=== PATIENT | female | born 1960 | race Caucasian/White ===

== ENCOUNTER → 2017-01-14 | Outpatient (CLI) | payer OTHER | LOC: CARD 11:47 | PROVIDERS: ATTEND Internal Medicine Cardiovascular Disease | DX: I25.10 Atherosclerotic heart disease of native coronary artery without angina pectoris (principal); I10 Essential (primary) hypertension; K21.9 Gastro-esophageal reflux disease without esophagitis; J45.909 Unspecified asthma, uncomplicated; Z82.49 Family history of ischemic heart disease and other diseases of the circulatory system | CPT/HCPCS: 93306 ==

== ENCOUNTER → 2017-01-20 | Outpatient (CLI) | payer OTHER ==
[~2017-01-20] MED LIST: CATHETER FLUSH 10 ML SYR IV PRN
[2017-01-20 13:52] VITALS: BP 150/87
--- NOTE | 2017-01-21 01:18 | STRESS TEST ---
DATE OF SERVICE: 01/20/2017 EXERCISE MYOVIEW STRESS TEST REFERRING PHYSICIAN: Dr. Sunil Spence. SUMMARY: The patient was injected with 10.99 mCi of technetium-99 Myoview and the resting images were obtained. Then, the patient started exercising with the baseline heart rate, blood pressure and EKG mentioned above. She was able to exercise for a total of 7 minutes 29 seconds on standard Beto protocol, achieving maximum heart rate of 149, which is 89% of maximum expected heart rate. With peak exercise level, blood pressure was 179/82. EKG was showing minimal undiagnostic changes. Prior to the peak exercise level, the patient was injected with 29.5 mCi of technetium-99 Myoview. During recovery, heart rate and blood pressure returned to baseline. EKG returned to baseline. The resting and stress images were reviewed and compared in the short axis, horizontal long axis, and vertical long axis views. Review of the images showed breast attenuation with typical female pattern. No significant ischemia or infarction. SSS is 4, SDS 3, TID value 1.01. On the gated images, the left ventricle appeared to be normal size with normal contractility, calculated ejection fraction 54%. CONCLUSION: 1. Fair exercise tolerance, a total of 7 minutes 26 seconds on standard Beto protocol, total of 8.9 METS achieving 89% of maximum expected heart rate. 2. Appropriate heart rate and blood pressure response to exercise, returned to baseline during recovery. 3. Nondiagnostic EKG changes with exercise, returned to baseline during recovery. 4. Breast attenuation with typical female pattern with no significant ischemia or infarction on SPECT images. 5. Normal left ventricular size with normal contractility. Calculated ejection fraction 54%. Job ID: [id number] DocumentID: [id number] Dictated Date: 01/20/2017 17:46:36 Grain Broker And Market Operator Date: 01/20/2017 22:42:28 Dictated By: DESIRE MAYORGA MD
== END ==
LOC: CARD 12:08
PROVIDERS: ATTEND Internal Medicine Cardiovascular Disease
DX: I25.10 Atherosclerotic heart disease of native coronary artery without angina pectoris (principal); I10 Essential (primary) hypertension; J45.909 Unspecified asthma, uncomplicated; K21.9 Gastro-esophageal reflux disease without esophagitis; Z82.49 Family history of ischemic heart disease and other diseases of the circulatory system
CPT/HCPCS: 78452; 93017

== ENCOUNTER 2019-11-02 09:06 | Outpatient (RCR) | payer OTHER ==
[~2019-11-02] VITALS: Ht 170 cm; Wt 86.0 kg
[~2019-11-02 09:06] MED LIST changes: -CATHETER FLUSH 10 ML SYR IV PRN; +LEVO5TAB28 PO; +PSEU120T75 PO
== END 2019-11-02 15:37 | disposition home or self-care (01) ==
LOC: PREOP 09:06
PROVIDERS: ATTEND Surgery
DX: Z01.818 Encounter for other preprocedural examination (principal); Z11.59 Encounter for screening for other viral diseases
CPT/HCPCS: 87635

== ENCOUNTER 2019-11-06 08:51 | Day surgery (SDC) | payer BC ==
[~2019-11-06] VITALS: Ht 170 cm; Wt 86.0 kg
[~2019-11-06 08:51] MED LIST changes: +LACTATED RINGERS 1,000 ML IV ONE
[2019-11-06] MEDS ORDERED: LACTATED RINGERS 1,000 ML IV STA (08:54)
[2019-11-06 09:00] VITALS: BP 137/90
--- OUTSIDE RECORDS SUMMARY | 2019-11-06 09:16 | XMS REPORT | Continuity of Care Document ---
Demographics Preferred Language Unknown Marital Status Unknown Nondenominational Affiliation Unknown Race Unknown Ethnic Group Unknown Author Organization Unknown Address Unknown Phone Unavailable Allergies Active Description Code Type Severity Reaction Onset Reported/Identified Relationship to Patient Clinical Status Yes sulfa drug Drug Allergy 08/07/2009 Yes No Allergy Information Available [id number] Drug Allergy Unknown N/A 016 Yes Sulfa (Sulfonamide Antibiotics) [id number] Drug Allergy Unknown FROM CHILDHOOD 11/01/2019 Medications There is no data. Problems Date Dx Coded Attending Type Code Diagnosis Diagnosed By 05/06/1536 KOBE POLANCO DO, Ot Z01.8 18 ENCOUNTER FOR OTHER PREPROCEDURAL EXAMIN 05/06/1536 KOBE POLANCO DO Ot Z11.5 9 ENCOUNTER FOR SCREENING FOR OTHER VIRAL 05/05/2010 381.81 DYS FUNCTION OF [place]ST[place] TUBE 12/02/2015 ARCHIE GRIMES Ot M54.2 CERVICALGIA 12/26/2015 ARCHIE GRIMES Ot M54.2 CERVICALGIA 01/13/2016 ARCHIE GRIMES Ot M54.2 CERVICALGIA 01/11/2017 ARCHIE GRIMES Ot M54.2 CERVICALGIA 01/14/2017 ARCHIE GRIMES Ot M54.2 CERVICALGIA 02/15/2017 DESIRE MAYORGA MD Ot I10 ESSENTIAL (PRIMARY) HYPERTENSION 02/15/2017 DESIRE MAYORGA MD Ot I25. 10 ATHSCL HEART DISEASE OF [place] CORONARY 02/15/2017 DESIRE MAYORGA MD, Ot J45.909 UNSPECIFIED ASTHMA, UNCOMPLICATED 02/15/2017 DESIRE MAYORGA MD Ot K21. 9 GASTRO-ESOPHAGEAL REFLUX DISEASE WITHOUT 02/15/2017 DESIRE MAYORGA MD, Ot Z82. 49 FAMILY HX OF [place] HEART DIS AND OTH DI 02/15/2017 DESIRE MAYORGA MD Ot I10 ESSENTIAL (PRIMARY) HYPERTENSION 02/15/2017 DESIRE MAYORGA MD Ot I25. 10 ATHSCL HEART DISEASE OF [place] CORONARY 02/15/2017 DESIRE MAYORGA MD, Ot J45.909 UNSPECIFIED ASTHMA, UNCOMPLICATED 02/15/2017 DESIRE MAYORGA MD J Ot K21. 9 GASTRO-ESOPHAGEAL REFLUX DISEASE WITHOUT 02/15/2017 DESIRE MAYORGA MD J Ot Z82. 49 FAMILY HX OF [place] HEART DIS AND OTH DI 03/02/2017 DESIRE MAYORGA MD J Ot I10 ESSENTIAL (PRIMARY) HYPERTENSION 03/02/2017 DESIRE MAYORGA MD J Ot I25. 10 ATHSCL HEART DISEASE OF [place] CORONARY 03/02/2017 DESIRE MAYORGA MD J Ot J45.909 UNSPECIFIED ASTHMA, UNCOMPLICATED 03/02/2017 DESIRE MAYORGA MD J Ot K21. 9 GASTRO-ESOPHAGEAL REFLUX DISEASE WITHOUT 03/02/2017 DESIRE MAYORGA MD Ot Z82. 49 FAMILY HX OF [place] HEART DIS AND OTH DI 03/02/2017 DESIRE MAYORGA MD J Ot I10 ESSENTIAL (PRIMARY) HYPERTENSION 03/02/2017 DESIRE MAYORGA MD J Ot I25. 10 ATHSCL HEART DISEASE OF [place] CORONARY 03/02/2017 DESIRE MAYORGA MD J Ot J45.909 UNSPECIFIED ASTHMA, UNCOMPLICATED 03/02/2017 DESIRE MAYORGA MD J Ot K21. 9 GASTRO-ESOPHAGEAL REFLUX DISEASE WITHOUT 03/02/2017 DESIRE MAYORGA MD J Ot Z82. 49 FAMILY HX OF [place] HEART DIS AND OTH DI 03/23/2017 DESIRE MAYORGA MD J Ot I10 ESSENTIAL (PRIMARY) HYPERTENSION 03/23/2017 DESIRE MAYORGA MD J Ot I25. 10 ATHSCL HEART DISEASE OF [place] CORONARY 03/23/2017 DESIRE MAYORGA MD Ot J45.909 UNSPECIFIED ASTHMA, UNCOMPLICATED 03/23/2017 DESIRE MAYORGA MD J Ot K21. 9 GASTRO-ESOPHAGEAL REFLUX DISEASE WITHOUT 03/23/2017 DESIRE MAYORGA MD J Ot Z82. 49 FAMILY HX OF [place] HEART DIS AND OTH DI 08/17/2019 W I10 Essent ial (primary) hypertension Jaylyn Field 08/17/2019 W R05 Cough due to RAUL inhibitor Jaylyn Field 08/17/2019 W T46.4X5A A dverse effect of vwqmeyjftzi-xvvhhilzap-mmecyv inhibitors, initial encounter Jaylyn Field 08/17/2019 W Z00.01 Enc ounter for general adult medical examination with abnormal findings Jaylyn Field 10/31/2019 GARY JENSEN, ARCHIE Leblanc Ot M54.2 CERVICALGIA 10/31/2019 DESIRE MAYORGA MD Ot I10 ESSENTIAL (PRIMARY) HYPERTENSION 10/31/2019 DESIRE MAYORGA MD Ot I25. 10 ATHSCL HEART DISEASE OF [place] CORONARY 10/31/2019 DESIRE MAYORGA MD, Ot J45.909 UNSPECIFIED ASTHMA, UNCOMPLICATED 10/31/2019 DESIRE MAYORGA MD Ot K21. 9 GASTRO-ESOPHAGEAL REFLUX DISEASE WITHOUT 10/31/2019 DESIRE MAYORGA MD Ot Z82. 49 FAMILY HX OF [place] HEART DIS AND OTH DI 10/31/2019 DESIRE MAYORGA MD, Ot I10 ESSENTIAL (PRIMARY) HYPERTENSION 10/31/2019 DESIRE MAYORGA MD Ot I25. 10 ATHSCL HEART DISEASE OF [place] CORONARY 10/31/2019 DESIRE MAYORGA MD, Ot J45.909 UNSPECIFIED ASTHMA, UNCOMPLICATED 10/31/2019 DESIRE MAYORGA MD, Ot K21. 9 GASTRO-ESOPHAGEAL REFLUX DISEASE WITHOUT 10/31/2019 DESIRE MAYORGA MD Ot Z82. 49 FAMILY HX OF [place] HEART DIS AND OTH DI Procedures There is no data. Results Test Result Range Coronavirus SARS-CoV-2 SO 2018 - 0 13:09 Coronavirus Ab [Units/volume] in Serum Negative Negative Encounters ACCT No. Visit Date/Time Discharge Status Pt. Type Provider Facility Loc./Unit Complaint [id number] 05/05/2010 15:25:00 05/05/2010 23:59: 59 CLS Outpatient [id number] 07/15/2012 08:17:49 RECURRING [id number] 11/02/2019 09:06:00 020 15:37:00 DIS Outpatient KOBE POLANCO DO [facility] PREOP COLONOSCOPY [id number] 01/20/2017 12:08:00 017 23:59:59 CLS Outpatient DESIRE MAYORGA MD [facility] CARD CAD I25.10,HTN I10 [id number] 01/14/2017 11:47:00 017 23:59:59 CLS Outpatient DESIRE MAYORGA MD [facility] CARD CAD I25.10,HTN I10 [id number] 11/29/2015 09:42:00 016 23:59:59 CLS Outpatient ARCHIE GRIMES [facility] RAD NECK PAIN [id number] 11/06/2019 10:10:00 P EN Preadmit KOBE POLANCO DO [facility] ENDO +COLOGUARD [id number] 07/31/2019 13:35:16 07/31/2019 23:59:5 9 CLS Outpatient
--- NOTE | 2019-11-06 09:17 | Progress Note-Pre Operative ---
Pre-Operative Progress Note H&P Reviewed The H&P was reviewed, patient examined and no changes noted. Time Seen by Provider: 09:15 Date H&P Reviewed: Nov 06, 2019 Time H&P Reviewed: 09:15 Pre-Operative Diagnosis: + CologKOBE Richardson DO Nov 06, 2019 09:17
[2019-11-06] MEDS ORDERED: LOSA25TA2 PO (09:22)
[2019-11-06] MEDS ORDERED: MIDAZOLAM 2 MG/2 ML (VERSED) VIAL ONE (09:41)
[2019-11-06] MEDS ORDERED: PROPOFOL INJECTION 0 ML IV ONE (09:41)
[2019-11-06] MEDS ORDERED: KETAMINE/NaCl 50 MG/5 ML SYRINGE (ED ONLY) ONE (09:52)
[2019-11-06] MEDS ORDERED: PROPOFOL INJECTION 50 ML IV ONE (10:06)
[2019-11-06 10:15] VITALS: BP 97/57
--- NOTE | 2019-11-06 10:18 | Progress Note-Post Operative ---
Post-Operative Progess Note Surgeon (s)/Mechanical Field Engineer (s) Surgeon KOBE POLANCO DO Mechanical Field Engineer: none Pre-Operative Diagnosis + Cologuard Post-Operative Diagnosis Diverticula Int Hemorrhoids Procedure & Operative Findings Date of Procedure 11/06/19 Procedure Performed/Findings Colonoscopy Anesthesia Type IV sedation by PROCUREMENT FORESTER Estimated Blood Loss Estimated blood loss (mL): none Specimens/Packing Specimens Removed none KOBE POLANCO DO Nov 06, 2019 10:18
--- NOTE | 2019-11-06 10:19 | Endoscopy Discharge Instruct ---
Endo Procedure/Findings Findings 1.: Diverticulosis 2.: Internal Hemorrhoids Discharge Instructions - Activity: You might feel a little sleepy until tomorrow. This is due to the medicine you received to relax you. Until tomorrow, you should: NOT drive a car, operate machinery or power tools. NOT drink any alcoholic beverages. NOT make any important decisions or sign importortant papers. Do not return to work until tomorrow, unless otherwise instructed. Resume previous activities tomorrow. Diet: Start by taking liquids. If you tolerate liquids, advance to solid food. make an appointment for one week. 1.: Colonscopy in 10 years Notify Physician - If you experience excessive bleeding, unusual abdominal pain, fever, or chest pain, contact your doctor immediately. KOBE POLANCO DO Nov 06, 2019 10:19
[2019-11-06 10:20] VITALS: BP 105/59
[2019-11-06 10:25] VITALS: BP 117/68
[2019-11-06 10:55] VITALS: BP 134/87
[2019-11-06 11:07] VITALS: BP 134/87
--- NOTE | 2019-11-06 12:20 | Anesthesia-General Post-Op ---
MAC Patient Condition Mental Status/LOC: Same as Preop Cardiovascular: Satisfactory Nausea/Vomiting: Absent Respiratory: Satisfactory Pain: Controlled Complications: Absent Post Op Complications Complications None Follow Up Care/Instructions Patient Instructions None needed. Anesthesiology Discharge Order Discharge Order Patient is doing well, no complaints, stable vital signs, no apparent adverse anesthesia problems. No complications reported per nursing. NIDHI MAKI CRNA Nov 06, 2019 12:20
--- NOTE | 2019-11-06 23:25 | OPERATIVE REPORT ---
DATE OF SERVICE: 11/06/2019 PREOPERATIVE DIAGNOSIS: Positive Cologuard. POSTOPERATIVE DIAGNOSES: Diverticula, and internal hemorrhoids. PROCEDURE: Colonoscopy. SURGEON: Lc Siddiqui DO OPENER: None. ANESTHESIA: IV sedation by the GYROSCOPE REPAIRER. SPECIMENS: None. BLOOD LOSS: None. FLUIDS: Per anesthesia. POSTOPERATIVE CONDITION: Stable. INDICATION FOR PROCEDURE: The patient is a 59-year-old female who had a positive Cologuard test and needed a colonoscopy. FINDINGS: The patient had some multiple diverticula, some internal hemorrhoids, but no other obvious pathology. PROCEDURE NOTE: After informed consent was obtained, the patient was brought to the endoscopy suite, placed in bed in the left lateral decubitus position. She was administered IV sedation by the GYROSCOPE REPAIRER who then monitored her vitals the entire time, heart rate, blood pressure and pulse ox and the scope was inserted, pushed all the way about 150 cm, able to get to the cecum. On the way in, noted multiple diverticula, took a picture of this, took a picture of the appendiceal orifice, noted the ileocecal valve and then slowly withdrew the scope insufflating to look circumferentially at the aleman looking at the cecum, up the ascending colon to the hepatic flexure, then down the transverse colon to the splenic flexure, then down into the descending colon into the sigmoid and finally into the rectum, retroflexed in the rectal vault, saw some minimal internal hemorrhoids, took a picture of this and then removed the scope. The patient tolerated the procedure, recovered in endoscopy suite. Job ID: [id number] DocumentID: [id number] Dictated Date: 11/06/2019 16:07:35 Manufacturing Machine Operator Date: 11/06/2019 23:25:07 Dictated By: LC SIDDIQUI DO
== END 2019-11-06 11:07 | disposition home or self-care (01) ==
LOC: ENDO 08:51
PROVIDERS: ATTEND Surgery
DX: K57.30 Diverticulosis of large intestine without perforation or abscess without bleeding (principal); K64.8 Other hemorrhoids; R19.5 Other fecal abnormalities; I25.10 Atherosclerotic heart disease of native coronary artery without angina pectoris; I11.9 Hypertensive heart disease without heart failure; J45.909 Unspecified asthma, uncomplicated; I63.9 Cerebral infarction, unspecified; K21.9 Gastro-esophageal reflux disease without esophagitis; Z79.891 Long term (current) use of opiate analgesic; Z79.899 Other long term (current) drug therapy; Z90.89 Acquired absence of other organs; Z88.2 Allergy status to sulfonamides

== ENCOUNTER → 2020-03-13 | Outpatient (CLI) | payer BC ==
[~2020-03-13] MED LIST changes: -LACTATED RINGERS 1,000 ML IV ONE; +LOSA25TA2 PO
--- NOTE | 2020-03-14 11:47 | Diagnostic Imaging Report ---
Indication: Routine screening. No prior studies are available for comparison. 2-D and 3-D bilateral screening mammography was performed with CAD. Scattered fibroglandular densities are identified bilaterally. There is a nodular density in the retroareolar right breast on the CC view. This appears to be inferiorly located on the MLO view. Additional views are recommended. A left breast is unremarkable. No malignant appearing microcalcifications are seen. Axillae are unremarkable. IMPRESSION: BI-RADS 0 Right breast density. Additional views recommended for further evaluation. ACR BI-RADS Category 0: Incomplete. (Needs additional imaging evaluation). Result letter will be mailed to the patient. Note: At least 10% of breast cancer is not imaged by mammography. Dictated by: Dictated on workstation # [id number]
== END ==
LOC: RAD 14:45
PROVIDERS: ATTEND Family Medicine
DX: Z12.31 Encounter for screening mammogram for malignant neoplasm of breast (principal)
CPT/HCPCS: 77063; 77067

== ENCOUNTER → 2020-03-25 | Outpatient (CLI) | payer BC ==
--- NOTE | 2020-03-25 15:55 | Diagnostic Imaging Report ---
Unilateral diagnostic right mammogram INDICATION: Abnormal mammogram FINDINGS: The screening mammogram performed on 03/13/2020 noted a nodular density in the retroareolar region of the right breast. The compression views of this area show no clear evidence for a discrete mass. Even so, I would recommend that ultrasound be performed for further study. IMPRESSION: There is no evidence of malignancy. Recommendations as above. ACR category 0. ACR BI-RADS Category 0: Incomplete. (Needs additional imaging evaluation). Result letter will be mailed to the patient. Note: At least 10% of breast cancer is not imaged by mammography. Dictated by: Dictated on workstation # [id number]
--- NOTE | 2020-03-25 20:08 | Diagnostic Imaging Report ---
EXAM: Limited ultrasound of the right breast INDICATION: Abnormal mammogram FINDINGS: The screening mammogram performed on 03/13/2020 suggests a nodular density in the retroareolar region of the right breast. On the diagnostic mammogram performed prior to the study, there is no clear evidence for malignancy. On this exam, there is a small 4 x 4 mm avascular hypoechoic area in the 6 clock position of the breast roughly 6 cm from the nipple. During my real-time examination of this area, this seemed to represent a benign process such as a cyst or perhaps a duct. There were a few internal echoes however. The presence of the echoes suggests that the cyst/duct may be slightly concave by infection and/or hemorrhage. There is no solid or cystic mass identified otherwise. IMPRESSION: There is a small slightly complex hypoechoic lesion in the 6 o'clock position of the breast. This is most likely a benign process such as a slightly complicated cyst or a duct with some debris. Even so, I would recommend a short-term (6 month) follow-up mammogram and ultrasound exam be performed for further study. ACR BI-RADS Category 3: Probably benign findings. Result letter will be mailed to the patient. Note: At least 10% of breast cancer is not imaged by mammography. Dictated by: Dictated on workstation # [id number]
== END ==
LOC: RAD 13:15
PROVIDERS: ATTEND Nurse Practitioner Family
DX: N64.9 Disorder of breast, unspecified (principal)
CPT/HCPCS: 76642; 77065; G0279

== ENCOUNTER → 2020-09-23 | Outpatient (CLI) | payer BC ==
--- NOTE | 2020-09-23 13:46 | Diagnostic Imaging Report ---
INDICATION: Six-month followup right breast nodule. COMPARISON: Correlation is made with the prior mammogram of 03/13/2020. TECHNIQUE: Unilateral right 2D and 3D diagnostic mammography was performed with CAD. FINDINGS: Scattered fibroglandular densities are identified bilaterally. The retroareolar nodular density appears stable when compared to the prior exam. No new mass is seen. No malignant appearing microcalcifications are identified. The right axilla is unremarkable. IMPRESSION: Stable right mammogram. Ultrasound followup of the previously noted nodule at the 6 o'clock location is recommended and will be performed today. ACR BI-RADS Category 0: Incomplete. (Needs additional imaging evaluation). Result letter will be mailed to the patient. Note: At least 10% of breast cancer is not imaged by mammography. Dictated by: Dictated on workstation # [id number]
--- NOTE | 2020-09-23 18:39 | Diagnostic Imaging Report ---
INDICATION: Six-month follow-up right breast nodule. CORRELATION is made with prior ultrasound 03/25/2020. Hypoechoic nodule 6:00 location of the right breast, 2 cm from the nipple, measuring 4 mm x 4 mm x 6 mm, stable when compared with prior exam. No new abnormality is detected. IMPRESSION: BI-RADS Category 3 Stable hypoechoic nodule 6:00 location right breast, 2 cm from the nipple. Additional six-month follow-up is recommended to show continued stability. ACR BI-RADS Category 3: Probably benign findings. Result letter will be mailed to the patient. Note: At least 10% of breast cancer is not imaged by mammography. Dictated by: Dictated on workstation # [id number]
== END ==
LOC: RAD 12:21
PROVIDERS: ATTEND Family Medicine
DX: N63.15 Unspecified lump in the right breast, overlapping quadrants (principal)
CPT/HCPCS: 76642; 77065; G0279

== ENCOUNTER → 2020-10-11 | Outpatient (CLI) | payer BC ==
[2020-10-11 13:19] LABS: ALBUMIN 4.2 GM/DL (3.2-4.5); CHLORIDE 105 MMOL/L (98-107); POTASSIUM 4.2 MMOL/L (3.6-5.0); SODIUM 140 MMOL/L (135-145)
[2020-10-11 13:20] LABS: CALCIUM 9.2 MG/DL (8.5-10.1)
[2020-10-11 13:21] LABS: TRIGLYCERIDES 144 MG/DL (<150); VLDL CHOLESTEROL 29 MG/DL (5-40)
[2020-10-11 13:22] LABS: GLUCOSE 92 MG/DL (70-105); TOTAL PROTEIN 7.2 GM/DL (6.4-8.2)
[2020-10-11 13:23] LABS: BILIRUBIN,TOTAL 0.3 MG/DL (0.1-1.0); CARBON DIOXIDE 27 MMOL/L (21-32)
[2020-10-11 13:25] LABS: ALKALINE PHOSPHATASE 80 U/L (40-136); CREATININE SERUM 0.82 MG/DL (0.60-1.30); GFR ESTIMATED > 60
[2020-10-11 13:26] LABS: CHOLESTEROL 239 MG/DL (< 200)
[2020-10-11 13:27] LABS: BUN/CREATININE RATIO 20; HDL CHOLESTEROL 53 MG/DL (40-60)
[2020-10-11 13:28] LABS: ALANINE AMINOTRANSFERASE 26 U/L (0-55)
== END ==
LOC: CARD 12:50
PROVIDERS: ATTEND Internal Medicine Cardiovascular Disease
DX: I10 Essential (primary) hypertension (principal); I34.0 Nonrheumatic mitral (valve) insufficiency; E78.2 Mixed hyperlipidemia
CPT/HCPCS: 36415; 80053; 80061; 93306

== ENCOUNTER → 2021-06-27 | Outpatient (CLI) | payer BC ==
--- NOTE | 2021-06-27 13:54 | Diagnostic Imaging Report ---
INDICATION: Six-month follow-up right breast nodule. Correlation is made with prior mammogram from 03/13/2020 and 09/23/2020. 2-D and 3-D bilateral diagnostic mammography was performed with CAD. Scattered fibroglandular densities are identified bilaterally. The nodular density in the retroareolar aspect of the right breast on the CC view appears stable. No new mass is detected. No malignant-appearing microcalcifications are seen. Axillae are unremarkable. IMPRESSION: BI-RADS 0 Stable bilateral mammograms. Patient is scheduled to undergo ultrasound of a known right breast 6:00 location nodule today for follow-up. ACR BI-RADS Category 0: Incomplete. (Needs additional imaging evaluation). Result letter will be mailed to the patient. Note: At least 10% of breast cancer is not imaged by mammography. Dictated by: Dictated on workstation # [id number]
--- NOTE | 2021-06-27 14:46 | Diagnostic Imaging Report ---
INDICATION: Six-month follow-up right breast nodule. COMPARISON: Correlation is made with prior ultrasound from 09/23/2020 as well as prior mammograms dating back to 2019. EXAMINATION: Right breast ultrasound. FINDINGS: Previously noted circumscribed hypoechoic nodule at the 6:00 location of the right breast, 2 cm from the nipple, is again noted and stable measuring 4 mm x 4 mm x 6 mm. No internal vascularity is seen. No other masses are identified. IMPRESSION: Stable nodule 6:00 location right breast, 2 cm from the nipple. This now shows approximately 15 months of stability. Additional six-month follow-up is recommended to show continued stability. ACR BI-RADS Category 3: Probably benign findings. Result letter will be mailed to the patient. Note: At least 10% of breast cancer is not imaged by mammography. Dictated by: Dictated on workstation # [id number]
== END ==
LOC: RAD 13:15
PROVIDERS: ATTEND Family Medicine
DX: N63.10 Unspecified lump in the right breast, unspecified quadrant (principal)
CPT/HCPCS: 76642; 77066; G0279; 77062

== ENCOUNTER → 2022-02-05 | Outpatient (CLI) | payer BC ==
--- NOTE | 2022-02-05 21:45 | Diagnostic Imaging Report ---
INDICATION: Follow-up nodule. EXAMINATION: Limited ultrasound of right breast. FINDINGS: The previous right breast ultrasound exam performed on 06/27/2021 noted a 4 x 4 x 6 mm hypoechoic nodule in the 6 clock position approximately 2 cm from the nipple. That nodule did seem stable when compared to the previous exams of 09/23/2020 and 03/24/2020. On this exam, the nodule is again identified. The nodule now measures 4 x 6 x 7 mm. In addition to being slightly larger than on the prior exam, the nodule now has a taller than wide configuration. This finding is of uncertain etiology but worrisome for malignancy. I would recommend that ultrasound-guided biopsy be performed to exclude malignancy. IMPRESSION: 1. The nodule in the 6 o'clock position of the right breast seen previously is slightly larger and has changed in configuration. An ultrasound-guided biopsy would be recommended to exclude malignancy. 2. These results were discussed with Dr. Jaylyn Field. ACR BI-RADS Category 4: Suspicious abnormality. Result letter will be mailed to the patient. Note: At least 10% of breast cancer is not imaged by mammography. Dictated by: Dictated on workstation # [id number]
== END ==
LOC: RAD 13:41
PROVIDERS: ATTEND Family Medicine
DX: N63.10 Unspecified lump in the right breast, unspecified quadrant (principal)

== ENCOUNTER → 2022-02-16 | Outpatient (CLI) | payer BC ==
[~2022-02-16] VITALS: Ht 170.2 cm; Wt 85.9 kg
[~2022-02-16] MED LIST changes: +LIDOCAINE 1% INJ 10 ML VIAL IJ ONE
--- NOTE | 2022-02-16 12:17 | Diagnostic Imaging Report ---
INDICATION: Right breast nodule. Patient presents for ultrasound-guided biopsy. DETAILS OF THE PROCEDURE: The patient was brought to the mammographic suite and placed on the table in the supine position. Ultrasound imaging of the right breast was performed to evaluate for an appropriate entry site. The right breast was then prepped and draped in the usual sterile fashion. A small amount of 1% lidocaine was utilized for local anesthesia. A 13-gauge hand-held vacuum-assisted mammotome device was positioned adjacent to the ill-defined hypoechogenicity at the 6 o'clock location of the right breast. Multiple core biopsies were obtained with the vacuum-assisted device. A marker clip was then deployed. Hemostasis was obtained using manual compression. The patient tolerated the procedure well and was sent for a post procedure mammogram in satisfactory condition. IMPRESSION: Successful biopsy of the small hypoechoic lesion at the 6 o'clock location of the right breast utilizing a 13-gauge, hand-held vacuum-assisted mammotome device. Pathology results are currently pending. Dictated by: Dictated on workstation # [id number]
--- NOTE | 2022-02-16 14:24 | Diagnostic Imaging Report ---
INDICATION: Right breast nodule, status post ultrasound-guided biopsy. FINDINGS: Unilateral right CC and ML mammography was performed after the patient underwent an ultrasound-guided right breast biopsy. Images demonstrate a marker clip in the inferior and slightly lateral retroareolar right breast status post biopsy. IMPRESSION: Marker clip placement status post ultrasound-guided right breast biopsy. Dictated by: Dictated on workstation # [id number]
== END ==
LOC: RAD 09:43
PROVIDERS: ATTEND Nurse Practitioner Family
DX: N63.10 Unspecified lump in the right breast, unspecified quadrant (principal)
CPT/HCPCS: 19083; 77065; G0279

== ENCOUNTER 2022-04-02 00:10 | Emergency (ER) | payer BC ==
[~2022-04-02 00:10] MED LIST changes: -LIDOCAINE 1% INJ 10 ML VIAL IJ ONE
[2022-04-02 01:14] LABS: BASOPHILS % (AUTO) 1 % (0-10); EOSINOPHILS # (AUTO) 0.5 10^3/uL (0.0-0.3); EOSINOPHILS % (AUTO) 8 % (0-10); HEMATOCRIT 39 % (35-52); HEMOGLOBIN 13.6 g/dL (11.5-16.0); LYMPHOCYTES # (AUTO) 1.6 10^3/uL (1.0-4.0); LYMPHOCYTES % (AUTO) 29 % (12-44); MEAN CORPUSCULAR HEMOGLOBIN 34 pg (25-34); MEAN CORPUSCULAR HGB CONC 35 g/dL (32-36); MEAN CORPUSCULAR VOLUME 99 fL (80-99); MEAN PLATELET VOLUME 9.7 fL (9.0-12.2); MONOCYTES # (AUTO) 0.5 10^3/uL (0.0-1.0); MONOCYTES % (AUTO) 9 % (0-12); NEUTROPHILS # (AUTO) 2.9 10^3/uL (1.8-7.8); NEUTROPHILS % (AUTO) 53 % (42-75); PLATELET COUNT 221 10^3/uL (130-400); WHITE BLOOD COUNT 5.6 10^3/uL (4.3-11.0)
[2022-04-02 01:25] LABS: BILIRUBIN,URINE NEGATIVE (NEGATIVE); CLARITY,URINE CLEAR; COLOR,URINE YELLOW; GLUCOSE, URINE (UA) NEGATIVE (NEGATIVE); KETONES,URINE NEGATIVE (NEGATIVE); LEUKOCYTE ESTERASE ,URINE NEGATIVE (NEGATIVE); NITRITE,URINE NEGATIVE (NEGATIVE); PH,URINE 6.5 (5-9); PROTEIN,URINE NEGATIVE (NEGATIVE)
[2022-04-02 01:36] LABS: BACTERIA,URINE TRACE /HPF
[2022-04-02 01:39] LABS: ALBUMIN 4.1 GM/DL (3.2-4.5)
[2022-04-02 01:41] LABS: CALCIUM 9.1 MG/DL (8.5-10.1)
[2022-04-02 01:42] LABS: TOTAL PROTEIN 6.9 GM/DL (6.4-8.2)
[2022-04-02 01:44] LABS: BILIRUBIN,TOTAL 0.4 MG/DL (0.1-1.0)
[2022-04-02 01:45] LABS: CREATININE SERUM 0.77 MG/DL (0.60-1.30)
[2022-04-02 01:48] LABS: MAGNESIUM 1.9 MG/DL (1.6-2.4)
[2022-04-02 02:10] LABS: FREE T4 (FREE THYROXINE) 0.81 NG/DL (0.70-1.48)
[2022-04-02] MEDS ORDERED: IOHEXOL 350 MG/ML 100 ML (OMNIPAQUE 350) VIAL IV ONE (03:00)
[2022-04-02] MEDS ORDERED: CATHETER FLUSH 10 ML SYR IV PRN (03:00)
[2022-04-02] MEDS ORDERED: NS 100 ML (IVPB) BAG IV ONE (03:00)
[2022-04-02 03:35] VITALS: BP 171/99
--- NOTE | 2022-04-02 03:43 | ED General ---
General Chief Complaint: General Problems/Pain Stated Complaint: DIZZY,HIGH BLOOD PRESSURE 180/109 Nursing Triage Note: PT ARRIVAL TO ER VIA PRIVATE VEHICLE FROM HOME WITH COMPLAINTS OF HTN, DIZZINESS X18 HOURS. PT STATES THAT SHE HAS HX OF CAD AND WANTED TO BE CHECKED OUT JUST IN CASE. Source of Information: Patient Exam Limitations: No Limitations History of Present Illness Date Seen by Provider: Apr 02, 2022 Time Seen by Provider: 00:29 Initial Comments This is 62-year-old woman presents to the emergency room with complaints of dizziness and high blood pressure since about 0900. She drove home from work and tried to relax but symptoms did not resolve. Blood pressure was quite high when she checked it at home. She was nauseated. She complained of a paresthesia in the left hand without any weakness. She had a mild headache this morning which has since improved. She also felt off balance but was able to walk independently and safely. She denies any chest pain or shortness of air. She took her usual losartan 50 mg at around 2130. She added an additional l osartan 25 mg at 2230. Allergies and Home Medications Allergies Coded Allergies: Sulfa (Sulfonamide Antibiotics) (Verified Allergy, Unknown, FROM CHILDHOOD, 11/01/19) Patient Home Medication List Home Medication List Reviewed: Yes Levocetirizine Dihydrochloride (Xyzal) 5 Mg Tablet, 2.5 MG PO HS, (Reported) Entered as Reported by: ANA DAVIS on 11/01/19 1134 Losartan Potassium (Cozaar) 25 Mg Tablet, 25 MG PO DAILY, (Reported) Entered as Reported by: VENKAT WREN on 11/06/19 0922 Pseudoephedrine HCl (Pseudoephedrine ER) 120 Mg Tablet.er, 60 MG PO DAILY, (Reported) Entered as Reported by: ANA DAVIS on 11/01/19 1134 Review of Systems Review of Systems Constitutional: no symptoms reported EENTM: no symptoms reported Respiratory: no symptoms reported Cardiovascular: see HPI Gastrointestinal: see HPI Genitourinary: no symptoms reported Musculoskeletal: no symptoms reported Skin: no symptoms reported Psychiatric/Neurological: See HPI Hematologic/Lymphatic: No Symptoms Reported Immunological/Allergic: no symptoms reported Past Ldrvdkj-Lqhrpn-Tughzs Hx Patient Social History Tobacco Use?: No Use of E-Cig and/or Vaping dev: No Substance use?: No Alcohol Use?: No Pt feels they are or have been: No Immunizations Up To Date PED Vaccines UTD: No Influenza Vaccine Up-to-Date: No; Not Current COVID19 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 Seasonal Allergies Seasonal Allergies: Yes Past Medical History Surgeries: Yes Orthopedic (Rotator cuff), Tonsillectomy Respiratory: No Cardiac: Yes Hypertension Neurological: No : No Sexually Transmitted Disease: No HIV/AIDS: No Genitourinary: No Gastrointestinal: Yes (REFLUX OCCASIONALLY) Gastroesophageal Reflux Musculoskeletal: No Endocrine: No HEENT: Yes (CONTACTS) Loss of Vision: Denies Hearing Impairment: Denies Cancer: No Psychosocial: No Integumentary: No Blood Disorders: No Adverse Reaction/Blood Tranf: No (N/A) Family Medical History Heart Disease Physical Exam Vital Signs Vital Signs - First Documented 04/02/22 00:25 Temp 36.7 Pulse 78 Resp 20 B/P (MAP) 188/98 (128) Pulse Ox 98 O2 Delivery Room Air Capillary Refill : Less Than 3 Seconds Height, Weight, BMI Height: '" Weight: lbs. oz. 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 No focal deficits were identified. Hxwzqa-up-pagl normal.) Skin: Normal Color, Warm/Dry Progress/Results/Core Measures Suspected Sepsis SIRS Temperature: Pulse: 78 Respiratory Rate: 20 Laboratory Tests 04/02/22 01:05: White Blood Count 5.6 Blood Pressure 188 /98 Mean: 128 Laboratory Tests 04/02/22 01:05: Creatinine 0.77, Platelet Count 221, Total Bilirubin 0.4 Results/Orders Lab Results Laboratory Tests Test 04/02/22 01:05 04/02/22 01:17 Range/Units White Blood Count 5.6 4.3-11.0 10^3/uL Red Blood Count 4.00 3.80-5.11 10^6/uL Hemoglobin 13.6 11.5-16.0 g/dL Hematocrit 39 35-52 % Mean Corpuscular Volume 99 80-99 fL Mean Corpuscular Hemoglobin 34 25-34 pg Mean Corpuscular Hemoglobin Concent 35 32-36 g/dL Red Cell Distribution Width 11.7 10.0-14.5 % Platelet Count 221 130-400 10^3/uL Mean Platelet Volume 9.7 9.0-12.2 fL Immature Granulocyte % (Auto) 0 % Neutrophils (%) (Auto) 53 42-75 % Lymphocytes (%) (Auto) 29 12-44 % Monocytes (%) (Auto) 9 0-12 % Eosinophils (%) (Auto) 8 0-10 % Basophils (%) (Auto) 1 0-10 % Neutrophils # (Auto) 2.9 1.8-7.8 10^3/uL Lymphocytes # (Auto) 1.6 1.0-4.0 10^3/uL Monocytes # (Auto) 0.5 0.0-1.0 10^3/uL Eosinophils # (Auto) 0.5 H 0.0-0.3 10^3/uL Basophils # (Auto) 0.0 0.0-0.1 10^3/uL Immature Granulocyte # (Auto) 0.0 0.0-0.1 10^3/uL Sodium Level 140 135-145 MMOL/L Potassium Level 4.0 3.6-5.0 MMOL/L Chloride Level 108 H 98-107 MMOL/L Carbon Dioxide Level 24 21-32 MMOL/L Anion Gap 8 5-14 MMOL/L Blood Urea Nitrogen 19 H 7-18 MG/DL Creatinine 0.77 0.60-1.30 MG/DL Estimat Glomerular Filtration Rate 88 BUN/Creatinine Ratio 25 Glucose Level 96 70-105 MG/DL Calcium Level 9.1 8.5-10.1 MG/DL Corrected Calcium 9.0 8.5-10.1 MG/DL Magnesium Level 1.9 1.6-2.4 MG/DL Total Bilirubin 0.4 0.1-1.0 MG/DL Aspartate Amino Transf (AST/SGOT) 16 5-34 U/L Alanine Aminotransferase (ALT/SGPT) 16 0-55 U/L Alkaline Phosphatase 68 40-136 U/L C-Reactive Protein High Sensitivity 0.27 0.00-0.50 MG/DL B-Type Natriuretic Peptide 32.4 <100.0 PG/ML Total Protein 6.9 6.4-8.2 GM/DL Albumin 4.1 3.2-4.5 GM/DL Thyroid Stimulating Hormone (TSH) 3.33 0.35-4.94 UIU/ML Free Thyroxine 0.81 0.70-1.48 NG/DL Urine Color YELLOW Urine Clarity CLEAR Urine pH 6.5 5-9 Urine Specific [place] 1.015 L 1.016-1.022 Urine Protein NEGATIVE NEGATIVE Urine Glucose (UA) NEGATIVE NEGATIVE Urine Ketones NEGATIVE NEGATIVE Urine Nitrite NEGATIVE NEGATIVE Urine Bilirubin NEGATIVE NEGATIVE Urine Urobilinogen 0.2 < = 1.0 MG/DL Urine Leukocyte Esterase NEGATIVE NEGATIVE Urine RBC (Auto) NEGATIVE NEGATIVE Urine RBC NONE /HPF Urine WBC NONE /HPF Urine Squamous Epithelial Cells 2-5 /HPF Urine Crystals NONE /LPF Urine Bacteria TRACE /HPF Urine Casts NONE /LPF Urine Mucus NEGATIVE /LPF Urine Culture Indicated NO My Orders Orders - JAILYN SOLIS MD Bnp Gina (04/02/22 01:03) Cbc With Automated Diff (04/02/22 01:03) Comprehensive Metabolic Panel (04/02/22 01:03) Hs C Reactive Protein (04/02/22 01:03) Magnesium (04/02/22 01:03) Thyroid Stimulating Hormone (04/02/22 01:03) Ua Culture If Indicated (04/02/22 01:03) Ct Head Wo (04/02/22 01:03) Ed Iv/Invasive Line Start (04/02/22 01:03) Ekg Tracing (04/02/22 01:03) Monitor-Rhythm Ecg Trace Only (04/02/22 01:03) Chest 1 View, Ap/Pa Only (04/02/22 01:03) Free T4 (Free Thyroxine) (04/02/22 01:03) Ct Angio Head/Neck (04/02/22 02:09) Iohexol Injection (Omnipaque 350 Mg/Ml 1 (04/02/22 03:00) Sodium Chloride Flush (Catheter Flush Sy (04/02/22 03:00) Ns (Ivpb) (Sodium Chloride 0.9% Ivpb Bag (04/02/22 03:00) Medications Given in ED Vital Signs/I&O 04/02/22 04/02/22 00:25 03:35 Temp 36.7 Pulse 78 61 Resp 20 18 B/P (MAP) 188/98 (128) 171/99 Pulse Ox 98 98 O2 Delivery Room Air Room Air Capillary Refill : Less Than 3 Seconds Blood Pressure Mean: 128 Progress Note : Progress Note Work-up was unremarkable. Blood pressure was slowly trending down with patient's additional half dose of losartan. Symptoms were improving. See discharge instructions for further discussion. ECG Initial ECG Impression Date: Apr 02, 2022 Initial ECG Impression Time: 00:34 Initial ECG Rate: 68 Initial ECG Rhythm: Normal Sinus Initial ECG Intervals: Normal Initial ECG Impression: Normal Comment Normal sinus rhythm with no ST elevation or depression. No abnormal intervals or axis deviation. Diagnostic Imaging Diagonstic Imaging: Xray Plain Films/CT/US/NM/MRI: chest Comments NAME: TIM MCKEON [facility] REC#: [id number] PT STATUS: DEP ER : 1960 PHYSICIAN: JIALYN SOLIS MD ADMIT DATE: 04/02/22/ER Signed Date of Exam:04/02/22 CHEST 1 VIEW, AP/PA ONLY INDICATION: Dizzy, Hypertension COMPARISON: None FINDINGS: Single frontal view of the chest demonstrates normal heart size and pulmonary vascularity. The lungs are well aerated and clear. No large pleural effusion or pneumothorax is seen. The visualized osseous structures show no acute abnormalities. IMPRESSION: 1. No acute cardiopulmonary process. Dictated by: Dictated on workstation # [id number] Dict: 04/02/22 0640 Trans: 04/02/22 1154 [id number] Interpreted by: HANNY DENT MD Electronically signed by: HANNY DENT MD 04/02/22 1154 Diagonstic Imaging: CT Plain Films/CT/US/NM/MRI: head Comments NAME: TIM MCKEON [facility] REC#: [id number] PT STATUS: [facility] ER : 1960 PHYSICIAN: JAILYN SOLIS MD ADMIT DATE: 04/02/22/ER Signed Date of Exam:04/02/22 CT HEAD WO INDICATION: Disequilibrium, Hypertension TECHNIQUE: Routine non contrast-enhanced axial images were obtained from the skull base to the vertex. Auto Exposure Controls were utilized during the CT exam to meet ALARA standards for radiation dose reduction COMPARISON: None. FINDINGS: The ventricles and cortical sulci are normal in size and contour. There is no midline shift or mass-effect. No acute intra-axial hemorrhage is seen. There are no abnormal areas of increased or decreased density to suggest acute hemorrhage or edema. No extra-axial masses or collections are present. The bony calvarium is intact. The visualized paranasal sinuses show mild scattered mucosal thickening. The mastoid air cells are clear. IMPRESSION: 1. No acute intracranial abnormality. No CT evidence of mass, acute infarct or intracranial hemorrhage. Dictated by: Dictated on workstation # [id number] Dict: 04/02/22 0635 Trans: 04/02/22 1155 [id number] Interpreted by: HANNY DENT MD Electronically signed by: HANNY DENT MD 04/02/22 1155 Diagonstic Imaging: CT Plain Films/CT/US/NM/MRI: other (Angiogram head and neck) Comments NAME: LINDATIM Isabel [facility] REC#: [id number] PT STATUS: DEP ER : 1960 PHYSICIAN: JAILYN SOLIS MD ADMIT DATE: 04/02/22/ER Signed Date of Exam:04/02/22 CT ANGIO HEAD/NECK PROCEDURE: CT angiography of the head and CT angiography of the neck with and without contrast. TECHNIQUE: Contiguous noncontrast images were obtained from the skull base through the vertex. After intravenous contrast administration, helical CT angiography of the neck was performed. Source data was reformatted into 3D MIP projections. Delayed post contrast acquisition was also obtained. Auto Exposure Controls were utilized during the CT exam to meet ALARA standards for radiation dose reduction. INDICATION: Hypertension and dizziness. COMPARISON: Noncontrast CT head from earlier same day FINDINGS: CTA neck: Included portions of the aortic arch are unremarkable. Origins of the major arch vessels are widely patent. Bilateral common carotid arteries are normal in course and caliber. There is normal opacification of the carotid bulbs and bilateral internal carotid arteries. By NASCET criteria, there is no focal significant stenosis. There is no evidence of dissection or thrombosis. Within the posterior circulation, right vertebral artery is slightly dominant. Bilateral vertebral arteries are otherwise patent from their origins of the confluence of the basilar artery. There is no evidence of dissection or thrombosis. Osseous structures show no acute abnormalities. Age-related degenerative changes are noted. Surrounding pre and paravertebral soft tissue structures are unremarkable. Included portions lung bases are clear. CTA [place]: There is normal opacification of the bilateral anterior and middle cerebral arteries. There is no evidence of aneurysm, vascular malformation, nor large vessel occlusion. Within the posterior circulation, there is normal appearance of the basilar artery. There is also normal enhancement of bilateral superior cerebellar and posterior cerebral arteries. There is no large vessel occlusion, aneurysm, nor vascular malformation. Postcontrast CT head: Postcontrast images show no abnormal areas of enhancement. There is no new mass effect or midline shift. There is no new loss of díaz-white matter junction differentiation to suggest evolving acute territorial infarct. No intra or extra axial intracranial hemorrhage is seen. No extra axial masses or fluid collections are identified. Bony calvarium is intact. Paranasal sinuses show minimal scattered mucosal thickening. Mastoid air cells are clear. IMPRESSION: 1. No acute vascular abnormality of the head or neck is seen. 2. No new acute intracranial abnormality. No CT evidence of acute infarct, mass, nor hemorrhage. Dictated by: Dictated on workstation # [id number] Dict: 04/02/22 0604 Trans: 04/02/22 1154 [id number] Interpreted by: HANNY DENT MD Electronically signed by: HANNY DENT MD 04/02/22 1154 Departure Impression Primary Impression: Hypertensive urgency Additional Impressions: Left hand paresthesia Disequilibrium Disposition: 01 HOME, SELF-CARE Condition: Improved Departure-Patient Inst. Decision time for Depature: 03:36 Referrals: ANH HERNANDEZ MD (PCP/Family) Primary Care Physician Patient Instructions: High Blood Pressure ED Add. Discharge Instructions: Your sensation of hand numbness and disequilibrium may have been caused by extremely high blood pressure. If you develop true neurologic deficits such as loss of sensation, weakness of a body part, speech difficulties, confusion, sudden vision changes, etc. please return to the emergency room immediately. Some medication changes are recommended for improved management of your high blood pressure. Please consider making the following changes: 1. Starting this morning add losartan 25 mg orally to your treatment regimen. Take 25 mg every morning and 50 mg every evening. If your blood pressure is still not well controlled after a few days, you may increase to 50 mg in the morning and 50 mg in the evening. 2. Discontinue pseudoephedrine or other decongestant stimulants such as phenylephrine. Since you have been using decongestants stimulants for a long period of time, you may experience some degree of withdraw after cessation. Symptoms may include fatigue, headache, body aches, irritability, nausea, etc. These withdrawal symptoms should resolve within a week. 3. Use a nasal steroid spray such as fluticasone as an alternative to stimulant decongestants. Use fluticasone as a maintenance medication by administering 2 sprays in each nostril daily. This may be increased to twice daily dosing during times of the year or situations when you have worsening congestion. Follow-up with your primary care provider in the next 1 to 2 weeks. Return to the ER if you have any other significant problems or concerns that warrant urgent medical attention. All discharge instructions reviewed with patient and/or family. Voiced understanding. Copy Copies To 1: DESIRE MAYORGA MD Copies To 2: ANH HERNANDEZ MD, JOSHUA T MD Apr 02, 2022 03:43
--- NOTE | 2022-04-02 06:13 | Diagnostic Imaging Report ---
PROCEDURE: CT angiography of the head and CT angiography of the neck with and without contrast. TECHNIQUE: Contiguous noncontrast images were obtained from the skull base through the vertex. After intravenous contrast administration, helical CT angiography of the neck was performed. Source data was reformatted into 3D MIP projections. Delayed post contrast acquisition was also obtained. Auto Exposure Controls were utilized during the CT exam to meet ALARA standards for radiation dose reduction. INDICATION: Hypertension and dizziness. COMPARISON: Noncontrast CT head from earlier same day FINDINGS: CTA neck: Included portions of the aortic arch are unremarkable. Origins of the major arch vessels are widely patent. Bilateral common carotid arteries are normal in course and caliber. There is normal opacification of the carotid bulbs and bilateral internal carotid arteries. By NASCET criteria, there is no focal significant stenosis. There is no evidence of dissection or thrombosis. Within the posterior circulation, right vertebral artery is slightly dominant. Bilateral vertebral arteries are otherwise patent from their origins of the confluence of the basilar artery. There is no evidence of dissection or thrombosis. Osseous structures show no acute abnormalities. Age-related degenerative changes are noted. Surrounding pre and paravertebral soft tissue structures are unremarkable. Included portions lung bases are clear. CTA [place]: There is normal opacification of the bilateral anterior and middle cerebral arteries. There is no evidence of aneurysm, vascular malformation, nor large vessel occlusion. Within the posterior circulation, there is normal appearance of the basilar artery. There is also normal enhancement of bilateral superior cerebellar and posterior cerebral arteries. There is no large vessel occlusion, aneurysm, nor vascular malformation. Postcontrast CT head: Postcontrast images show no abnormal areas of enhancement. There is no new mass effect or midline shift. There is no new loss of díaz-white matter junction differentiation to suggest evolving acute territorial infarct. No intra or extra axial intracranial hemorrhage is seen. No extra axial masses or fluid collections are identified. Bony calvarium is intact. Paranasal sinuses show minimal scattered mucosal thickening. Mastoid air cells are clear. IMPRESSION: 1. No acute vascular abnormality of the head or neck is seen. 2. No new acute intracranial abnormality. No CT evidence of acute infarct, mass, nor hemorrhage. Dictated by: Dictated on workstation # [id number]
--- NOTE | 2022-04-02 06:41 | Diagnostic Imaging Report ---
INDICATION: Disequilibrium, Hypertension TECHNIQUE: Routine non contrast-enhanced axial images were obtained from the skull base to the vertex. Auto Exposure Controls were utilized during the CT exam to meet ALARA standards for radiation dose reduction COMPARISON: None. FINDINGS: The ventricles and cortical sulci are normal in size and contour. There is no midline shift or mass-effect. No acute intra-axial hemorrhage is seen. There are no abnormal areas of increased or decreased density to suggest acute hemorrhage or edema. No extra-axial masses or collections are present. The bony calvarium is intact. The visualized paranasal sinuses show mild scattered mucosal thickening. The mastoid air cells are clear. IMPRESSION: 1. No acute intracranial abnormality. No CT evidence of mass, acute infarct or intracranial hemorrhage. Dictated by: Dictated on workstation # [id number]
--- NOTE | 2022-04-02 06:42 | Diagnostic Imaging Report ---
INDICATION: Dizzy, Hypertension COMPARISON: None FINDINGS: Single frontal view of the chest demonstrates normal heart size and pulmonary vascularity. The lungs are well aerated and clear. No large pleural effusion or pneumothorax is seen. The visualized osseous structures show no acute abnormalities. IMPRESSION: 1. No acute cardiopulmonary process. Dictated by: Dictated on workstation # [id number]
== END 2022-04-02 03:49 | disposition home or self-care (01) ==
LOC: ER 00:10 → EDUNIT# 00:10 → ER 03:49
DX: I16.0 Hypertensive urgency (principal); E87.8 Other disorders of electrolyte and fluid balance, not elsewhere classified; R20.2 Paresthesia of skin
CPT/HCPCS: 36415; 70450; 70496; 70498; 71045; 80053; 81000; 83735; 83880; 84439; 84443; 85025; 86141; 93005; 93041

== ENCOUNTER → 2022-12-22 | Outpatient (CLI) | payer BC ==
--- NOTE | 2022-12-22 14:57 | Diagnostic Imaging Report ---
PROCEDURE: US Renal Bilateral. TECHNIQUE: Multiple real-time grayscale images were obtained over the kidneys in various projections bilaterally. INDICATION: Dysuria. The right kidney measures 10.4, the left 8.8 cm. Cyst identified medially off the upper pole of the left kidney measuring 1.6 cm noted. The urinary bladder had a 70 mL volume of a 4 mL post void residual and appeared nonfocal. This patient has mild right greater than left hydroureteronephrosis. No echogenic or shadowing stone found. IMPRESSION: Mild bilateral hydronephrosis greater right, no visible stone. Normal bladder was trace post void residual and bilateral ureteral jets patency confirmed. Dictated by: Dictated on workstation # [id number]
== END ==
LOC: RAD 10:00
PROVIDERS: ATTEND Nurse Practitioner Family
DX: N13.30 Unspecified hydronephrosis (principal)
CPT/HCPCS: 76770

== ENCOUNTER → 2023-01-08 | Outpatient (CLI) | payer BC ==
--- NOTE | 2023-01-08 12:21 | Diagnostic Imaging Report ---
PROCEDURE: CT abdomen and pelvis without contrast. TECHNIQUE: Multiple contiguous axial images were obtained through the abdomen and pelvis without the use of intravenous contrast. Auto Exposure Controls were utilized during the CT exam to meet ALARA standards for radiation dose reduction. INDICATION: Dysuria, abnormal ultrasound. Correlation made with ultrasound study from 12/22/2022. FINDINGS: The lung bases are clear. Liver and gallbladder are unremarkable. Pancreas and spleen are unremarkable. No adrenal mass is identified. No significant hydronephrosis is seen. There appear to be small renal sinus cysts lower pole left kidney. There is no calculi detected. Aorta is nonaneurysmal. Bowel loops are nonobstructed. There is moderate stool throughout the colon. There appears to be occasional diverticula within the sigmoid but no diverticulitis. There is no free fluid or fluid collection. Uterus and bladder are unremarkable. IMPRESSION: 1. No evidence of urinary tract calculi or obstruction. No hydronephrosis is detected on today's study. 2. Uncomplicated diverticulosis. Dictated by: Dictated on workstation # [id number]
== END ==
LOC: RAD 07:40
PROVIDERS: ATTEND Nurse Practitioner Family
DX: K57.90 Diverticulosis of intestine, part unspecified, without perforation or abscess without bleeding (principal)
CPT/HCPCS: 74176

== ENCOUNTER → 2023-01-11 | Outpatient (CLI) | payer BC ==
--- NOTE | 2023-01-11 14:44 | Diagnostic Imaging Report ---
INDICATION: Routine screening. Comparison is made with prior mammogram from 06/27/2021. 2-D and 3-D bilateral screening mammography was performed with CAD. Scattered fibroglandular densities are identified bilaterally. A biopsy marker clip in the right breast is again noted. The parenchymal pattern is stable. No mass or malignant-appearing microcalcifications are seen. Axillae are unremarkable. IMPRESSION: No mammographic features suspicious for malignancy are identified. ACR BI-RADS Category 2: Benign findings. Result letter will be mailed to the patient. Note: At least 10% of breast cancer is not imaged by mammography. BI-RADS Category 2 Dictated by: Dictated on workstation # [id number]
== END ==
LOC: RAD 09:07
PROVIDERS: ATTEND Family Medicine
DX: Z12.31 Encounter for screening mammogram for malignant neoplasm of breast (principal); Z00.00 Encounter for general adult medical examination without abnormal findings
CPT/HCPCS: 77063; 77067

== ENCOUNTER → 2023-03-10 | Outpatient (CLI) | payer BC ==
[~2023-03-10] MED LIST changes: +LOSA-414 PO; -LOSA25TA2 PO
[2023-03-10 13:57] VITALS: BP 158/109
--- NOTE | 2023-03-10 16:28 | Cardiology Stress Test Report ---
Stress Test Report Date of Procedure/Referring: Date of Procedure: Mar 10, 2023 PCP Anh Field MD Admitting Physician Admitting Physician: Attending Physician: Mary Velazquez Pa-C Baseline Heart Rate: 68 Baseline Blood Pressure: Blood Pressure Systolic: 158 Blood Pressure Diastolic: 109 Baseline EKG: Baseline EKG: NSR Summary/Conclusion: Summary: In summary, the patient started exercising with a baseline heart rate, blood pressure and EKG mentioned above Patient was able to exercise for a total of 7 minutes on Beto protocol, METs 8.5 Maximum heart rate 148 Maximum blood pressure 207/108 Stress EKG, Minimal nondiagnostic changes Recovery EKG , Return to baseline Conclusion: 1. Good exercise tolerance for a total of 7 minutes on Beto protocol, 8.5 METs, achieving 93 percent of maximum expected heart rate 2. Minimal nondiagnostic EKG changes with exercise returned to baseline during recovery 3. No arrhythmia was noted 4. Hypertensive response to exercise return to baseline during recovery Copy Copies To 1: ANH FIELD MD, BASHAR J MD Mar 10, 2023 16:28
== END ==
LOC: CARD 13:40
PROVIDERS: ATTEND Physician Assistant
DX: I10 Essential (primary) hypertension (principal)
CPT/HCPCS: 93017